=== PATIENT | female | born 1995 | race Caucasian/White ===

== ENCOUNTER 2017-01-31 16:50 | Emergency (ER) | payer BC ==
--- NOTE | 2017-01-31 18:21 | ED ---
Throat Pain/Nasal Congestion - HPI Summary HPI Summary: 21 yr female with cough, sinus congestion, pain in maxillary sinuses, sore throat and post nasal drip. Onset of symptoms three days ago. She has a history of sinus infections. She has no other complaints. LMP is now. - History of Current Complaint Chief Complaint: UCGeneralIllness Time Seen by Provider: 01/31/17 18:01 - Allergies/Home Medications Allergies/Adverse Reactions: Allergies Allergy/AdvReac Type Severity Reaction Status Date / Time Penicillins [PCN] Allergy Intermediate Hives Verified 01/31/17 17:37 Home Medications: Home Medications Ibuprofen TAB* [Advil TAB*] 200 mg PO Q6H PRN 01/31/17 [History Confirmed ] PMH/Surg Hx/FS Hx/Imm Hx Previously Healthy: Yes Infectious Disease History: No Infectious Disease History: Denies: Traveled Outside the [place] in Last 30 Days - Social History Alcohol Use: None Substance Use Type: Reports: None Smoking Status (MU): Never Smoked Tobacco Review of Systems Constitutional: Negative Positive: Nasal Discharge Positive: Cough All Other Systems Reviewed And Are Negative: Yes Physical Exam Triage Information Reviewed: Yes Vital Signs On Initial Exam: Initial Vitals Temp Pulse Resp BP Pulse Ox 99.1 F 71 16 106/58 100 01/31/17 17:37 01/31/17 17:37 01/31/17 17:37 01/31/17 17:37 01/31/17 17:37 Appearance: Positive: Well-Appearing, No Pain Distress Skin: Positive: Warm Head/Face: Positive: Normal Head/Face Inspection Eyes: Positive: Normal, EOMI ENT: Positive: Nasal drainage, Other - bilateral maxillary sinus tenderness Respiratory/Lung Sounds: Positive: Clear to Auscultation, Breath Sounds Present Cardiovascular: Positive: Normal, RRR. Negative: Murmur Abdomen Description: Positive: Nontender Musculoskeletal: Positive: Normal, Strength/ROM Intact Neurological: Positive: Normal, Sensory/Motor Intact, Alert, Oriented to Person Place, Time, CN Intact II-III Psychiatric: Positive: Normal Diagnostics - Vital Signs Vital Signs Temp Pulse Resp BP Pulse Ox 01/31/17 17:37 99.1 F 71 16 106/58 100 - Laboratory Lab Statement: Any lab studies that have been ordered have been reviewed, and results considered in the medical decision making process. EENT Course/Dx - Course Course Of Treatment: 21 yr old with sinusitis, will rx with zithromax. - Diagnoses Provider Diagnoses: Sinusitis Discharge - Discharge Plan Condition: Good Disposition: HOME Prescriptions: Azithromycin TAB* [Zithromax TAB (Z-ADALI) 250 mg #6 tabs] 2 tab PO .TODAY, THEN 1 DAILY #1 adali Patient Education Materials: Sinusitis (ED) Referrals: [facility] [Outside]
== END 2017-01-31 18:23 | disposition home or self-care (01) ==
LOC: UCCORT 16:50
DX: J32.9 Chronic sinusitis, unspecified (principal); Z88.0 Allergy status to penicillin
CPT/HCPCS: 99202; G0463

== ENCOUNTER 2018-11-24 10:43 | Emergency (ER) | payer BC ==
[2018-11-24 12:10] VITALS: BP 133/75
--- NOTE | 2018-11-24 12:25 | UC ---
UC General HPI - HPI Summary HPI Summary: sinus congestion, ST, cough and chest congestion x 4 days. No fever, CROOKS, body aches or asthma. - History of Current Complaint Chief Complaint: UCRespiratory Stated Complaint: ST/COUGH/CONGESTION Time Seen by Provider: 11/24/18 12:19 Hx Obtained From: Patient Hx Last Menstrual Period: "maybe two or three weeks ago" Onset/Duration: Gradual Onset Timing: Constant Pain Intensity: 4 Associated Signs & Symptoms: Positive: Cough - Allergy/Home Medications Allergies/Adverse Reactions: Allergies Allergy/AdvReac Type Severity Reaction Status Date / Time Penicillins Allergy Hives Verified 11/24/18 12:07 Home Medications: Home Medications Fluticasone Propionate [Xhance] 1 spray BOTH NARES BID 11/24/18 [History Confirmed 11/24/18] PMH/Surg Hx/FS Hx/Imm Hx - Additional Past Medical History Additional PMH: nasal polyps-removed - Surgical History Surgical History: Yes Surgery Procedure, Year, and Place: Sinus Polyps, [address] [place] [address] - Family History Known Family History: Positive: Non-Contributory - Social History Alcohol Use: Occasionally Substance Use Type: None Smoking Status (MU): Never Smoked Tobacco - Immunization History Vaccination Up to Date: Yes Review of Systems All Other Systems Reviewed And Are Negative: Yes Constitutional: Positive: Negative Skin: Positive: Negative Eyes: Positive: Negative ENT: Positive: Sore Throat, Sinus Congestion Respiratory: Positive: Cough Cardiovascular: Positive: Negative Gastrointestinal: Positive: Negative Genitourinary: Positive: Negative Motor: Positive: Negative Neurovascular: Positive: Negative Musculoskeletal: Positive: Negative Neurological: Positive: Negative Psychological: Positive: Negative Physical Exam Triage Information Reviewed: Yes Appearance: Well-Appearing Vital Signs: Initial Vital Signs Temp 98.7 F 11/24/18 12:05 Pulse 95 11/24/18 12:05 Resp 16 11/24/18 12:05 BP 133/75 11/24/18 12:05 Pulse Ox 100 11/24/18 12:05 Vital Signs Reviewed: Yes Eyes: Positive: Conjunctiva Clear ENT: Positive: Pharyngeal erythema, Nasal congestion, TMs normal, Uvula midline. Negative: Nasal drainage, Trismus, Muffled voice, Hoarse voice, Sinus tenderness Neck: Positive: Supple, Nontender, Enlarged Nodes @ - peritonsilar Respiratory: Positive: Lungs clear, Normal breath sounds, No respiratory distress Cardiovascular: Positive: RRR, No Murmur Abdomen Description: Positive: Nontender, No Organomegaly, Soft Bowel Sounds: Positive: Present Musculoskeletal: Positive: ROM Intact Neurological: Positive: Alert Psychological: Positive: Age Appropriate Behavior Skin Exam: Normal Diagnostics - Laboratory Diagnostic Studies Completed/Ordered: rapid strep=neg Course/Dx - Diagnoses Provider Diagnosis: URI (upper respiratory infection), Bronchitis Discharge - Sign-Out/Discharge Documenting (check all that apply): Patient Departure All imaging exams completed and their final reports reviewed: No Studies - Discharge Plan Condition: Stable Disposition: HOME Patient Education Materials: Upper Respiratory Infection (DC), Acute Bronchitis (ED) Additional Instructions: FOLLOW UP WITH YOUR PRIMARY CARE AT HOME IF NOT BETTER IN 5 DAYS OR SOONER IF WORSE. - Billing Disposition and Condition Condition: STABLE Disposition: Home
== END 2018-11-24 12:51 | disposition home or self-care (01) ==
LOC: UCCORT 10:43
DX: J06.9 Acute upper respiratory infection, unspecified (principal); J40 Bronchitis, not specified as acute or chronic; Z88.0 Allergy status to penicillin
CPT/HCPCS: 87651; 99211; G0463